=== PATIENT | male | born 1950 | race Two or more races ===

== ENCOUNTER 2016-07-17 08:27 | Day surgery (SDC) | payer SELFPAY ==
[~2016-07-17 08:27] MED LIST: ALBUTEROL SULF8.5 G2 IH; ASPIRIN325 MG; ASPIRIN81 M1 PO; ASPIRIN81 MG; AZITHROMYCIN250 M1 PO; COMPAZINE10 MG PO; DOXYCYCLINE HY100 M3 PO; GLIPIZIDE10 MG; GLUCOPHAGE1000 MG; GLUCOPHAGE500 MG; HYDROCODON-ACE1 EA16 PO; LIPITOR10 M1 PO; LIPITOR20 MG; LISINOPRIL10 MG; MAGNESIUM OXID400 M1 PO; METFORMIN HCL1000 M2 PO; METOPROLOL TART25 M1 PO; PREDNISONE5 M1 PO; TOPROL XL50 MG; ZESTRIL20 M3 PO; ZYTIGA250 M1 PO
[2016-07-17] MEDS ORDERED: ALTOPREV20 M1 PO (09:33)
[2016-07-17] MEDS ORDERED: GLUCOPHAGE1000 M1 PO (09:33)
[2016-07-17] MEDS ORDERED: PREDNISONE10 M1 PO (09:34)
[2016-07-17] MEDS ORDERED: COREG12.5 M1 PO (09:35)
[2016-07-17] MEDS ORDERED: ZYTIGA250 M1 PO (09:37)
[2016-07-17] MEDS ORDERED: GLUCOTROL10 M1 PO (09:38)
[2016-07-17] MEDS ORDERED: PRINIVIL10 M1 PO (09:39)
[2016-07-17] MEDS ORDERED: LEVEMIR100 UNITS/ SC (09:40)
[2016-07-17 09:49] LABS: BASO % 0.3 % (0-2); EOSINOPHIL ABSOLUTE COUNT 0.1 tho/cmm (0.0-0.7); HGB-HEMOGLOBIN 12.8 gm/dl (13.5-17.0); IMMATURE GRANULOCYTES ABSOLUTE 0.02 tho/cmm (0-0.03); IMMATURE GRANULOCYTES PERCENT 0.3 % (0-0.3); LYMPH % 33.7 % (20-45); LYMPH ABSOLUTE COUNT 2.4 tho/cmm (0.8-4.5); MCH (MEAN CORPUSCULAR HGB) 26.4 pg (28.0-32.0); MCHC MEAN CORPUSCULAR HGB CONC 33.7 % (32.0-36.0); MCV (MEAN CELL VOLUME) 78.5 fl (82.0-96.0); MEAN PLATELET VOLUME 12.2 cmc (9.4-12.4); MONO % 7.4 % (0-12); MONOCYTE ABSOLUTE COUNT 0.5 tho/cmm (0.0-1.2); NEUTROPHIL ABSOLUTE COUNT 4.1 tho/cmm (1.6-8.0); NEUTROPHIL-AUTOMATED 4.1 tho/cmm (1.6-8.0); NEUTROPHILS % 57.3 % (40-80); PLATELET COUNT 177 tho/cmm (150-450); RED BLOOD COUNT 4.84 mil/cmm (4.40-5.70); WHITE BLOOD COUNT 7.1 tho/cmm (4.0-10.0)
[2016-07-17 09:56] LABS: ANION GAP 13 mmol/L (0-20); BLOOD UREA NITROGEN 19 mg/dl (6-24); CALCIUM 8.9 mg/dl (8.5-10.5); CARBON DIOXIDE-VENOUS 25 mmol/L (22-32); CHLORIDE 105 mmol/l (96-110); CREATININE 0.81 mg/dl (0.60-1.30); GLUCOSE 286 mg/dL (70-110); POTASSIUM 4.9 mmol/L (3.7-5.1); SODIUM 138 mmol/L (135-145); eGFR VALUE FOR BLACK >90 mL/Min
[2016-11-26] MEDS ORDERED: CLEOCIN HCL300 M1 PO (22:44)
[2016-11-27] MEDS ORDERED: LOVASTATIN20 M2 PO (01:20)
== END 2016-07-17 16:05 ==
LOC: SHSB 08:27 → ORW 10:35 → PACU 11:18 → SHSB 12:30
PROVIDERS: Urology
PROC: 0VTTXZZ Resection of Prepuce, External Approach (ICD-10-PCS; principal; 2016-07-17)
DX: N47.1 Phimosis (principal); N48.1 Balanitis; I25.10 Atherosclerotic heart disease of native coronary artery without angina pectoris; I11.9 Hypertensive heart disease without heart failure; E78.5 Hyperlipidemia, unspecified; E11.65 Type 2 diabetes mellitus with hyperglycemia; C61 Malignant neoplasm of prostate; Z79.52 Long term (current) use of systemic steroids; Z79.82 Long term (current) use of aspirin; Z79.84 Long term (current) use of oral hypoglycemic drugs; Z79.899 Other long term (current) drug therapy; Z95.0 Presence of cardiac pacemaker; Z98.890 Other specified postprocedural states
CPT/HCPCS: J0690; J1815; J2250; J3010